=== PATIENT | female | born 1975 ===

== ENCOUNTER 2021-04-04 06:10 | Day surgery (SDC) | payer OTHER ==
[2021-04-04] MEDS ORDERED: ASA325 M1 PO (11:38)
[2021-04-04] MEDS ORDERED: DUI500 PO (11:38)
[2021-04-04] MEDS ORDERED: PERCOCET 5-3251 EACH PO (11:38)
== END 2021-04-04 17:00 | disposition home or self-care (01) ==
LOC: CIR.AMB 06:10
PROVIDERS: ATTEND Orthopaedic Surgery
DX: S82.841A Displaced bimalleolar fracture of right lower leg, initial encounter for closed fracture (principal); S93.421A Sprain of deltoid ligament of right ankle, initial encounter; Z20.822 Contact with and (suspected) exposure to COVID-19
CPT/HCPCS: 27814; C1776; 27695